=== PATIENT | male | born 1980 | race African-American/Black ===

== ENCOUNTER 2025-04-21 12:37 | Emergency (ER) | payer SELFPAY ==
[~2025-04-21] VITALS: Ht 182.9 cm; Wt 82.0 kg
[2025-04-21 12:59] VITALS: TEMP 36.7; O2SAT 99
[2025-04-21] MEDS ORDERED: CEPH500T MT (14:35)
[2025-04-21] MEDS ORDERED: SULF1TAB48 MT (14:35)
[2025-04-21 14:49] VITALS: BP 177/89; PULSE 90; RESP 18; O2SAT 99
== END 2025-04-21 14:50 | disposition home or self-care (01) ==
LOC: ER 12:37
DX: L02.01 Cutaneous abscess of face (principal)
CPT/HCPCS: 99283